=== PATIENT | female | born 1965 | race American Indian/Alaskan Native ===

== ENCOUNTER 2018-03-02 14:58 | Outpatient (CLI) | payer OTHER ==
--- NOTE | 2018-03-03 14:39 | Mammography Report ---
BILATERAL DIGITAL SCREENING MAMMOGRAM with CAD: 03/02/18 14:58:00 CLINICAL: Baseline screening. FINDINGS: The breasts are almost entirely fatty. No mass, architectural distortion or suspicious calcifications. IMPRESSION: No mammographic evidence of malignancy. BI-RADS CATEGORY: 1 - - Negative RECOMMENDATION: Routine mammographic screening in one year. COMMENT: Patient follow-up letters are generated by our evoc[employer] application.
== END 2018-03-02 14:59 | disposition home or self-care (01) ==
LOC: SPVWC 14:58
PROVIDERS: ATTEND Internal Medicine
DX: Z12.31 Encounter for screening mammogram for malignant neoplasm of breast (principal)
CPT/HCPCS: 77067

== ENCOUNTER 2018-03-25 13:14 | Outpatient (CLI) | payer OTHER ==
--- NOTE | 2018-03-25 16:47 | Cat Scan Report ---
FINAL REPORT EXAM: CT ABDOMEN PELVIS W CON HISTORY: ABDOMINAL PAIN COMPARISON: None. TECHNIQUE: Multiple contiguous axial images were obtained from the lung bases to the pubic symphysis after administration of IV contrast. Reformatted sagittal and coronal images were available for review. Delayed imaging was also performed. FINDINGS: Lung bases: Normal. Visualized heart and mediastinum: Normal. Liver: Multiple nonenhancing subcentimeter ovoid low-density lesions throughout the liver parenchyma, likely pharmaceutical service representative of cysts, but are too small to characterize. Spleen: Normal. Pancreas: Normal. Gallbladder and Biliary Tree: No calcified gallstones. No biliary ductal dilatation. Adrenal glands: Normal. Kidneys: Symmetric enhancement to both kidneys. No hydronephrosis. Bladder: Normal. Pelvic organs: There is a large, heterogeneous mass along the posterior aspect of the uterus that measures approximately 13 x 9 x 15 centimeters. The ovaries are not well visualized. Bowel: No evidence of bowel obstruction. No focal wall thickening. The appendix is normal in caliber without surrounding inflammatory change. Peritoneum: No significant mesenteric adenopathy. No free air or free fluid. Vasculature: Abdominal aorta is normal in caliber without evidence of aneurysm. Scattered atherosclerotic calcifications. Normal appearance of the portal venous system and inferior vena cava. Bones and soft tissues: No suspicious osseous lesions.No acute fracture or dislocation. There is a fat containing 3.4 x 3 centimeter umbilical hernia with a 1.9 centimeter neck. There is stranding of the herniated fat as well as the fat just deep to the umbilicus. IMPRESSION: 1. 3.4 x 3 centimeter fat containing umbilical hernia, with stranding of the herniated fat and stranding of the mesenteric fat just deep to the hernia. Findings may represent ischemic or inflammatory change. Recommend clinical correlation. 2. Large heterogeneous mass along the posterior aspect of the uterus that measures approximately 13 x 9 x 15 centimeters. Findings may represent a large fibroid. Recommend surgical consult and consider further evaluation with MRI. 3. Multiple nonenhancing subcentimeter low-density lesions throughout the liver parenchyma, likely pharmaceutical service representative of cysts, but are too small to characterize.
== END 2018-03-25 13:15 | disposition home or self-care (01) ==
LOC: CT 13:14
PROVIDERS: ATTEND Surgery
DX: K42.9 Umbilical hernia without obstruction or gangrene (principal); I70.0 Atherosclerosis of aorta
CPT/HCPCS: 74177; Q9967